=== PATIENT | male | born 1965 | race Hispanic/Latino ===

== ENCOUNTER 2018-04-15 03:03 | Emergency (ER) | payer OTHER ==
[2018-04-15 03:07] VITALS: O2SAT 98
--- NOTE | 2018-04-15 04:01 | C.PDOC ---
History Of Present Illness 53 year old male presents to the ED for evaluation of right wrist pain. Patient reports that while at work he tried catching a metal door from falling over. Patient denies other injury, fall, trauma, weakness, numbness. Time Seen by Provider: 04/15/18 03:35 Chief Complaint (Nursing): Finger,Hand,&Wrist History Per: Patient History/Exam Limitations: no limitations Onset/Duration Of Symptoms: Hrs Current Symptoms Are (Timing): Still Present Quality: "Pain" Recent travel outside of the [place]: No Additional History Per: Patient Past Medical History Reviewed: Historical Data, Nursing Documentation, Vital Signs Vital Signs: Last Vital Signs Temp 98.2 F 04/15/18 03:06 Pulse 87 04/15/18 03:06 Resp 22 04/15/18 03:06 BP 145/95 H 04/15/18 03:06 Pulse Ox 98 04/15/18 04:30 - Medical History PMH: No Chronic Diseases Denies: Chronic Kidney Disease Surgical History: No Surg Hx Family History: States: Unknown Family Hx - Social History Hx Alcohol Use: Yes Hx Substance Use: No - Immunization History Hx Tetanus Toxoid Vaccination: Yes Hx Influenza Vaccination: Yes Hx Pneumococcal Vaccination: No Review Of Systems Constitutional: Negative for: Fever, Chills Musculoskeletal: Positive for: Hand Pain Neurological: Negative for: Weakness, Numbness Physical Exam - Physical Exam Appears: Non-toxic, No Acute Distress Skin: Normal Color, Warm, Dry Head: Atraumatic, Normacephalic Eye(s): bilateral: Normal Inspection Oral Mucosa: Moist Neck: Normal ROM, Supple Chest: Symmetrical Cardiovascular: Rhythm Regular Respiratory: Normal Breath Sounds Extremity: Normal ROM, Tenderness (anterior aspect right wrist), Capillary Refill (< 2 seconds), No Deformity, No Swelling Pulses: Left Radial: Normal, Right Radial: Normal Neurological/Psych: Oriented x3, Normal Speech, Normal Motor, Normal Sensation Gait: Steady ED Course And Treatment O2 Sat by Pulse Oximetry: 98 (On RA) Pulse Ox Interpretation: Normal - Other Rad Right wrist X-Ray X-Ray: Interpreted by Me, Viewed By Me Interpretation: No fracture or dislocation Progress Note: Plan: - Motrin 600 mg PO. - Right wrist X-Ray. Patient is resting comfortably, and is in no acute distress. Patient was placed in a wrist splint for support. Pt was instructed to follow up with PMD in 1-2 days for further evaluation. Orthopedic Time Performed: 04:14 Time Out: Side verified, Site verified, Patient ID confirmed, Sterile procedures obs. Procedure: Splint Type: Cock-up Location: Right, Wrist Consent obtained: Written Performed by: Mid-level Provider Diagnosis: Sprain Location: Right Capillary refill: Normal Distal Sensation: Normal Distal Motor Function: Normal Capillary Refill: Normal Compartment: Normal Distal Sensation: Normal Distal Motor Function: Normal Post-reduction Radiograph: Good Alignment Patient tolerated procedure: Well Disposition Counseled Patient/Family Regarding: Diagnosis, Rx Given - Disposition Disposition: HOME/ ROUTINE Disposition Time: 04:29 Condition: STABLE Additional Instructions: motrin for pain Wtist brace for support Follow up with PMD Return to ER if worse Instructions: Wrist Sprain (DC) Forms: [facility] (Bel[place]ian), Work Excuse - Clinical Impression Clinical Impression: Left wrist sprain - 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 - Scribe Statement The provider has reviewed the documentation as recorded by the Scribe Charles Arriaza All medical record entries made by the Scribe were at my direction and personally dictated by me. I have reviewed the chart and agree that the record accurately reflects my personal performance of the history, physical exam, medical decision making, and the department course for this patient. I have also personally directed, reviewed, and agree with the discharge instructions and disposition.
[2018-04-15 04:40] VITALS: BP 140/90; PULSE 88; RESP 20; TEMP 98
--- NOTE | 2018-04-15 08:01 | RAD ---
Date of service: 04/15/2018 PROCEDURE: Right Wrist Radiographs. HISTORY: pain, trauma COMPARISON: None. FINDINGS: BONES: Normal. No fracture. JOINTS: Normal. No dislocation. SOFT TISSUES: Normal. OTHER FINDINGS: None. IMPRESSION: No radiographic evidence of acute fracture or dislocation. If clinically warranted follow-up exam or further assessment by CT may be obtained.
== END 2018-04-15 04:40 | disposition home or self-care (01) ==
LOC: C.ER 03:03
DX: S63.501A Unspecified sprain of right wrist, initial encounter (principal); X58.XXXA Exposure to other specified factors, initial encounter; Y99.0 Civilian activity done for income or pay